=== PATIENT | female | born 1935 | race Caucasian/White ===

== ENCOUNTER 2018-07-22 14:10 | Emergency (ER) | payer OTHER ==
[2018-07-22 14:13] VITALS: BMI 24.2
[2018-07-22] MEDS ORDERED: Sodium Chloride 0.9% 500 ML IV ONE ×2 (15:39→15:50)
[2018-07-22 17:12] LABS: BASO # 0.1 K/uL (0.0-0.2); BASO % 0.6 % (0.0-2.0); HEMOGLOBIN 12.3 g/dL (11.0-16.0); LYMPH # 0.8 K/uL (1.0-4.3); LYMPH % 9.4 % (20.0-40.0); MEAN CELL VOLUME 87.2 fL (81.0-99.0); MEAN CORPUSCULAR HEMOGLOBIN 27.9 pg (27.0-31.0); MONO # 0.2 K/uL (0.0-0.8); MONO % 2.5 % (0.0-10.0); NEUT # 7.7 K/uL (1.8-7.0); NEUT % 87.5 % (50.0-75.0); PLATELET COUNT 286 K/uL (130-400); RBC 4.42 Mil/uL (3.80-5.20); RED CELL DISTRIBUTION WIDTH 14.8 % (11.5-14.5); WHITE BLOOD COUNT 8.8 K/uL (4.8-10.8)
[2018-07-22 17:13] LABS: BLOOD UREA NITROGEN 14 mg/dL (7-17); CALCIUM 9.8 mg/dl (8.6-10.4); GFR NON-AFRICAN AMERICAN > 60; LIPASE 113 U/L (23-300)
[2018-07-22 17:14] LABS: ALB/GLOB RATIO 1.4 (1.0-2.1); ALBUMIN 4.6 g/dL (3.5-5.0); ALT/SGPT 13 U/L (9-52); AST/SGOT 44 U/L (14-36)
[2018-07-22 17:34] VITALS: O2SAT 98
[2018-07-22 17:48] LABS: SQUAMOUS EPITHIAL < 1 /hpf (0-5); URINE BILIRUBIN NEGATIVE (NEGATIVE); URINE BLOOD NEGATIVE (NEGATIVE); URINE CLARITY Clear (Clear); URINE COLOR Yellow (YELLOW); URINE GLUCOSE (UA) NORMAL (Normal); URINE LEUKOCYTE ESTERASE TRACE Leu/uL (Negative); URINE PROTEIN NEGATIVE (NEGATIVE); URINE UROBILINOGEN NORMAL mg/dL (0.2-1.0)
--- NOTE | 2018-07-22 18:07 | C.PDOC ---
History Of Present Illness 83 year old female presents to ED with complaint of nausea, vomiting, and upper abdominal pain since this morning. Patient has no past surgical history to the abdomen or pelvis. Patient denies diarrhea, fever, chest pain, SOB, dysuria, and hematuria. Time Seen by Provider: 07/22/18 15:15 Chief Complaint (Nursing): GI Problem History Per: Patient History/Exam Limitations: no limitations Onset/Duration Of Symptoms: Hrs Current Symptoms Are (Timing): Still Present Location Of Pain/Discomfort: Other (upper abdomen) Quality Of Discomfort: "Pain" Associated Symptoms: Nausea, Vomiting. denies: Fever, Chills, Diarrhea, Chest Pain, Urinary Symptoms Exacerbating Factors: None Alleviating Factors: None Past Medical History Reviewed: Historical Data, Nursing Documentation, Vital Signs Vital Signs: Last Vital Signs Temp 97.8 F 07/22/18 14:14 Pulse 79 07/22/18 17:33 Resp 16 07/22/18 17:33 BP 144/70 07/22/18 17:33 Pulse Ox 98 07/22/18 17:33 - Medical History PMH: Anemia, Asthma, HTN, Hypercholesterolemia Surgical History: No Surg Hx Family History: States: Unknown Family Hx - Social History Hx Tobacco Use: Yes Hx Alcohol Use: No Hx Substance Use: No - Immunization History Hx Tetanus Toxoid Vaccination: No Hx Influenza Vaccination: No Hx Pneumococcal Vaccination: No Review Of Systems Constitutional: Negative for: Fever, Chills, Weakness Cardiovascular: Negative for: Chest Pain Respiratory: Negative for: Shortness of Breath Gastrointestinal: Positive for: Nausea, Vomiting, Abdominal Pain (upper abdomen). Negative for: Diarrhea Genitourinary: Negative for: Dysuria, Hematuria Neurological: Negative for: Weakness, Numbness, Dizziness Physical Exam - Physical Exam Appears: No Acute Distress, Other (comfortable) Skin: Normal Color, Warm, Dry Head: Atraumatic, Normacephalic Neck: Normal ROM, Supple Chest: Symmetrical, No Deformity Cardiovascular: Rhythm Regular, No Murmur Respiratory: No Accessory Muscle Use, No Rales, No Rhonchi, No Wheezing Gastrointestinal/Abdominal: Tenderness (mild epigastric and left upper quadrant ), No Other (Sharpe's sign, McBurney's point tenderness) Neurological/Psych: Oriented x3, Normal Speech, Normal Cognition ED Course And Treatment - Laboratory Results Result Diagrams: 07/22/18 16:57 07/22/18 16:57 Lab Results: Total Bilirubin 0.9 mg/dL (0.2-1.3) 07/22/18 16:57 AST 44 U/L (14-36) H 07/22/18 16:57 ALT 13 U/L (9-52) 07/22/18 16:57 Alkaline Phosphatase 65 U/L (38-126) 07/22/18 16:57 Total Protein 8.1 g/dL (6.3-8.3) 07/22/18 16:57 Albumin 4.6 g/dL (3.5-5.0) 07/22/18 16:57 Globulin 3.4 gm/dL (2.2-3.9) 07/22/18 16:57 Albumin/Globulin Ratio 1.4 (1.0-2.1) 07/22/18 16:57 Lipase 113 U/L (23-300) 07/22/18 16:57 Urine Color Yellow (YELLOW) 07/22/18 17:34 Urine Clarity Clear (Clear) 07/22/18 17:34 Urine pH 8.0 (5.0-8.0) 07/22/18 17:34 Ur Specific [place] 1.009 (1.003-1.030) 07/22/18 17:34 Urine Protein Negative mg/dL (NEGATIVE) 07/22/18 17:34 Urine Glucose (UA) Normal mg/dL (Normal) 07/22/18 17:34 Urine Ketones Negative mg/dL (NEGATIVE) 07/22/18 17:34 Urine Blood Negative (NEGATIVE) 07/22/18 17:34 Urine Nitrate Negative (NEGATIVE) 07/22/18 17:34 Urine Bilirubin Negative (NEGATIVE) 07/22/18 17:34 Urine Urobilinogen Normal mg/dL (0.2-1.0) 07/22/18 17:34 Ur Leukocyte Esterase Trace Edie/uL (Negative) 07/22/18 17:34 Urine WBC (Auto) 5 /hpf (0-5) 07/22/18 17:34 Urine RBC (Auto) 2 /hpf (0-3) 07/22/18 17:34 Ur Squamous Epith Cells < 1 /hpf (0-5) 07/22/18 17:34 ECG: Interpreted By Me, Viewed By Me ECG Rhythm: Sinus Rhythm ECG Interpretation: Normal Interpretation Of ECG: Normal axis. T-wave inversion at v3 and avF. No acute ST changes. Rate From EC O2 Sat by Pulse Oximetry: 98 - Other Rad Obstructive series X-Ray: Interpreted by Me, Viewed By Me Interpretation: IMPRESSION: Minor bibasilar atelectasis and or scarring. No evidence of free intraperitoneal air. Nonobstructive bowel gas pattern. Progress Note: EKG and Obstructive series ordered for patient. Patient given Pepcid IVP, IV fluids, and Zofran IVP. Labs ordered with CBC and UA. Re-evaluation. Patient feels better. Discussed results and plan with patient who expresses understanding. All questions answered and there is agreement with the plan to discharge home with instructions. Patient stable for discharge. Return if symptoms persist or worsen. Disposition Counseled Patient/Family Regarding: Studies Performed, Diagnosis, Need For Followup, Rx Given - Disposition Referrals: Ines Shaw MD [Medical Doctor] - Diego Garza MD [Staff Provider] - Disposition: HOME/ ROUTINE Disposition Time: 18:05 Condition: STABLE Additional Instructions: FOLLOW UP WITH YOUR DOCTOR IN 1-2 DAYS IF SYMPTOMS PERSIST, FOLLOW UP WITH PHOTORESIST CONTACT PRINTER WITHIN 1 WEEK USE MEDICATIONS DIRECTED RETURN TO EMERGENCY ROOM IF YOUR SYMPTOMS BECOME WORSE SEGUIR CON ARORA MDICO EN 1-2 BAEZ SI LOS SNTOMAS PERSISTEN, SIGUE CON EL GASTROENTERLOGO DENTRO DE 1 SEMANA UTILICE MEDICAMENTOS KIMBERLY SE DIRIGE VUELVA A LA MARYAM DE EMERGENCIA SI JESUS MANUEL SNTOMAS SE HACEN PEOR Prescriptions: Ondansetron ODT [Zofran ODT] 1 odt PO BID PRN #10 odt PRN Reason: Nausea/Vomiting Pantoprazole [Protonix EC Tab] 20 mg PO DAILY #30 ect Instructions: Nausea and Vomiting, Adult (DC), Stomach Ache and Stomach Upset Forms: [facility] (Citizen Of [place]) Print Language: GERMAN - Clinical Impression Clinical Impression: Epigastric abdominal pain, Nausea & vomiting - Scribe Statement The provider has reviewed the documentation as recorded by the Scribe (Shana Luna) All medical record entries made by the Scribe were at my direction and personally dictated by me. I have reviewed the chart and agree that the record accurately reflects my personal performance of the history, physical exam, medical decision making, and the department course for this patient. I have also personally directed, reviewed, and agree with the discharge instructions and disposition.
[2018-07-22 18:09] LABS: BANDS 2 % (0-2); LYMPHOCYTE 13 % (20-40); MONOCYTE 6 % (0-10); NEUTROPHIL 79 % (50-75); PLATELET ESTIMATE NORMAL (NORMAL); TOTAL CELLS COUNTED 100
[2018-07-22 18:10] LABS: HYPOCHROMIC SLIGHT; LARGE PLATELETS PRESENT; MICROCYTOSIS SLIGHT; TEARDROP CELLS SLIGHT
--- NOTE | 2018-07-22 18:26 | RAD ---
Date of service: 07/22/2018 PROCEDURE: Radiographs of the chest and abdomen (obstructive series) HISTORY: Abd Pain COMPARISON: Comparison made with prior chest radiograph 02/08/2015 TECHNIQUE: AP radiograph of the chest, with upright and supine radiographs of the abdomen. FINDINGS: CHEST: Lungs: Minor bibasilar atelectasis and or scarring Cardiovascular: Cardiomegaly. No pulmonary vascular congestion. Aorta is ectatic and uncoiled with mild aortic atherosclerotic calcification present.. Pleura: No pleural fluid. No pneumothorax. Other findings: None. ABDOMEN AND PELVIS: Bowel: Unremarkable bowel gas pattern. No evidence of mechanical obstruction. Free air: None. Bones: Minor multilevel degenerative spondylosis of the lower thoracic and lumbar spine. There is also a mild levoscoliosis centered at the thoracolumbar junction.. Other findings: Suspect small osteoma or bone island overlying the superomedial aspect of the sacrum and/or iliac bone. Aorta is ectatic and uncoiled IMPRESSION: Minor bibasilar atelectasis and or scarring No evidence of free intraperitoneal air. Nonobstructive bowel gas pattern.
[2018-07-22 18:41] VITALS: BP 162/80; PULSE 84; RESP 18; TEMP 97.9
--- NOTE | 2018-07-23 13:35 | CARD ---
APPROVED REPORT Date of service: 07/22/2018 EKG Measurement Heart [id number] <Conclusion> Normal sinus rhythm ST & T wave abnormality, consider inferior ischemia Abnormal ECG
== END 2018-07-22 18:44 | disposition home or self-care (01) ==
LOC: C.ER 14:10
DX: R11.2 Nausea with vomiting, unspecified (principal); R10.13 Epigastric pain; E78.00 Pure hypercholesterolemia, unspecified; I10 Essential (primary) hypertension; Z72.0 Tobacco use
CPT/HCPCS: 74022; 80053; 81001; 83690; 85025; 93005; 96374; 96375; 99285; J2405; J7040